=== PATIENT | male | born 1990 | race Caucasian/White ===

== ENCOUNTER 2020-11-17 20:42 | Emergency (ER) | payer OTHER ==
[~2020-11-17] VITALS: Ht 185.4 cm; Wt 90.9 kg
[2020-11-18] MEDS ORDERED: acetaminophen 325mg tablet PO ONE (01:50)
--- NOTE | 2020-11-18 02:00 | NUR ---
LEG ELEVATED AND ICE PACKS APPLIED MEDICATED WITH TYLENOL ORDERED
[2020-11-18] MEDS ORDERED: HYDROcodone/acetaminophen 5mg/325mg tablet PO ONE (02:30)
[2020-11-18] MEDS ORDERED: ondansetron 4mg rapidly disintigrating tab PO ONE (02:30)
[2020-11-18] MEDS ORDERED: HYDR-3964 PO (02:32)
[2020-11-18] MEDS ORDERED: ONDA4TAB6 PO (02:32)
[2020-11-18 03:07] VITALS: BP 148/56
--- NOTE | 2020-11-18 03:07 | NUR ---
knee immoblizer at bedside pt refuse to place " i will do it at home "
== END 2020-11-18 03:10 | disposition home or self-care (01) ==
LOC: ER 20:43
DX: S83.92XA Sprain of unspecified site of left knee, initial encounter (principal); M23.92 Unspecified internal derangement of left knee; M25.462 Effusion, left knee; Z88.8 Allergy status to other drugs, medicaments and biological substances; Z79.899 Other long term (current) drug therapy; X58.XXXA Exposure to other specified factors, initial encounter; Y93.89 Activity, other specified; Y92.89 Other specified places as the place of occurrence of the external cause; Y99.8 Other external cause status
CPT/HCPCS: 29505; 99284

== ENCOUNTER → 2024-09-14 | Outpatient (CLI) | payer MEDICAID ==
[~2024-09-14] MED LIST: ONDA4TAB6 PO
--- NOTE | 2024-09-14 12:42 | ELECTROCARDIOGRAPH REPORT ---
[facility] Test Date: 2024-09-14 Test Time: 11:18:22 Pat Name: ISABEL PEMBERTON Department: PRE/OP CARDIOLOGY Patient ID: [id number] Room: Gender: M [employer]: ALICE : [id number] Requested By: RICO GAN Order Number: [id number] Reading MD: Dr. DERICK Morrison Measurements Intervals [place] Rate: 70 P: 40 HI: 163 QRS: 64 QRSD: 88 T: 37 QT: 391 QTc: 422 Interpretive Statements Sinus rhythm Minimal ST elevation, anterior leads Electronically Signed On 09-14-2024 19:50:[address] DERICK Morrison Please click the below link to view image of tracing.
== END | disposition home or self-care (01) ==
LOC: RAD 11:06
PROVIDERS: ATTEND Physician Assistant
DX: F11.20 Opioid dependence, uncomplicated (principal)
CPT/HCPCS: 93005